=== PATIENT | female | born 1980 | race Caucasian/White ===

== ENCOUNTER → 2018-05-24 | Outpatient (CLI) | payer BC | LOC: COL.RAD 08:07 | DX: J43.9 Emphysema, unspecified (principal); K76.0 Fatty (change of) liver, not elsewhere classified; R31.1 Benign essential microscopic hematuria | CPT/HCPCS: Q9967 ==

== ENCOUNTER → 2018-06-07 | Outpatient (CLI) | payer BC | LOC: COL.RAD 13:41 | DX: P25.0 Interstitial emphysema originating in the perinatal period (principal); K76.0 Fatty (change of) liver, not elsewhere classified ==

== ENCOUNTER → 2018-08-14 | Outpatient (CLI) | payer BC | LOC: COL.VAS 10:52 | DX: R06.02 Shortness of breath (principal) ==

== ENCOUNTER → 2018-09-30 | Outpatient (CLI) | payer BC | LOC: COL.PUL 09:54 | DX: R06.02 Shortness of breath (principal) | CPT/HCPCS: J7674 ==